=== PATIENT | male | born 1965 | race African-American/Black ===

== ENCOUNTER 2020-06-02 12:26 | Inpatient (IN) | payer OTHER, SELFPAY ==
[~2020-06-02] VITALS: Ht 172.7 cm; Wt 92.5 kg
[2020-06-02] MEDS ORDERED: SODIUM CHLORIDE 0.9% 1,000 ML IV ONE (13:00)
[2020-06-02 13:26] LABS: BASOPHILS % 0.1 % (0.0-2.0); EOSINOPHILS % 0.5 % (0.0-5.0); HEMATOCRIT. 43.4 % (42.0-52.0); HEMOGLOBIN. 13.9 g/dL (14.0-18.0); MEAN CORPUSCULAR HEMOGLOBIN 24.9 pg (28.0-32.0); MEAN CORPUSCULAR VOLUME 77.5 fL (80.0-94.0); MEAN PLATELET VOLUME 8.8 fl (7.4-10.4); MONOCYTES % 6.6 % (2.0-8.0); NEUTROPHILS % 74.8 % (40.0-76.0); PLATELET 266 x1000/uL (130-400); RED BLOOD CELL COUNT 5.59 mill/uL (4.7-6.1)
[2020-06-02 13:32] LABS: CHLORIDE 101 mEq/L (98-107)
[2020-06-02 13:35] LABS: INR 1.2; PROTHROMBIN TIME 12.1 sec (9.6-11.0)
[2020-06-02 13:36] LABS: ETHANOL BLOOD < 10 mg/dL
[2020-06-02 13:40] LABS: CREATINE KINASE 129 IU/L (39-308)
[2020-06-02] MEDS ORDERED: AZITHROMYCIN 500 MG in DEXT 5% WATER 250 ML IV ONE (13:45)
[2020-06-02] MEDS ORDERED: KCL 10MEQ/50ML PREMIX 50 ML IV SCH (13:45)
[2020-06-02] MEDS ORDERED: POTASSIUM CHLORIDE 20MEQ TABLET SR PO SCH (13:45)
[2020-06-02] MEDS ORDERED: CEFTRIAXONE 1 G PREMIX 50 ML IV ONE (13:45)
[2020-06-02] MEDS ORDERED: DOCUSATE SODIUM 100MG CAPSULE PO PRN (16:15)
[2020-06-02] MEDS ORDERED: LORAZEPAM 2MG/ML CPJ IV PRN (16:15)
[2020-06-02] MEDS ORDERED: KETOROLAC 15MG/ML VIAL IV PRN (16:15)
[2020-06-02] MEDS ORDERED: ZOLPIDEM TARTRATE 5MG TABLET PO PRN (16:15)
[2020-06-02] MEDS ORDERED: GUAIFENESIN 200MG/10ML SUGAR FREE UDC PO PRN (16:15)
[2020-06-02] MEDS ORDERED: ONDANSETRON HCL 4MG/2ML INJ IV PRN (16:15)
[2020-06-02] MEDS ORDERED: DEXTROSE 50% WATER 50ML SYRINGE IV PRN (16:15)
[2020-06-02] MEDS ORDERED: ACETAMINOPHEN 325MG TABLET PO PRN ×2 (16:15)
[2020-06-02] MEDS ORDERED: ALBUTEROL 6.7GM HFA INHALER ORI PRN (16:15)
[2020-06-02] MEDS ORDERED: NA PHOS,M-B/NA PHOS,DI-BA ENEMA 118ML PR PRN (16:15)
[2020-06-02] MEDS ORDERED: NITROGLYCERIN 0.4MG TABLET SL SL PRN (16:15)
[2020-06-02] MEDS ORDERED: MAGNESIUM/ALUMINUM HYDROXIDE/SIMETHICONE 30ML UDC PO PRN (16:15)
[2020-06-02 16:21] LABS: CLARITY URINE CLEAR (CLEAR); COLOR URINE YELLOW (YELLOW); KETONES URINE NEGATIVE (NEGATIVE); LEUKOCYTE ESTERASE URINE NEGATIVE (NEGATIVE); NITRITE URINE NEGATIVE (NEGATIVE); OCCULT BLOOD URINE NEGATIVE (NEGATIVE); PROTEIN URINE NEGATIVE (NEGATIVE); SPECIFIC GRAVITY URINE 1.007 (1.005-1.030); UROBILINOGEN URINE 0.2 E.U./dL (0.2-1.0)
[2020-06-02 16:37] LABS: *AMPHETAMINES SCREEN URINE NEGATIVE (NEGATIVE); *BARBITURATES SCREEN URINE NEGATIVE (NEGATIVE); *BENZODIAZEPINES SCREEN URINE NEGATIVE (NEGATIVE); *COCAINE SCREEN URINE NEGATIVE (NEGATIVE); METHADONE URINE SCREEN NEGATIVE (NEGATIVE); OPIATES URINE SCREEN NEGATIVE (NEGATIVE)
[2020-06-02 16:38] LABS: CANNABINOID URINE SCREEN NEGATIVE (NEGATIVE); PHENCYCLIDINE URINE SCREEN NEGATIVE (NEGATIVE)
[2020-06-02] MEDS: ENOXAPARIN 40MG/0.4ML SYR SUBCUT SCH (17:15)
[2020-06-02] MEDS: BLOOD SUGAR DIAGNOSTIC STRIP TEST SCH ×2 (17:22→21:00)
[2020-06-02] MEDS: INSULIN LISPRO 100 UNITS/ML SUBCUT SCH ×2 (18:20→21:00)
[2020-06-02] MEDS: GUAIFENESIN/DM 600MG/30MG ER TAB 12HR PO SCH (18:34)
[2020-06-02] MEDS: DILTIAZEM HCL 60MG TABLET PO SCH (18:34)
[2020-06-02 18:52] LABS: FOLIC ACID (FOLATE) SERUM 17.8 ng/mL (>5.38)
[2020-06-02] MEDS: ASCORBIC ACID 500 MG TABLET PO SCH (21:00)
[2020-06-02] MEDS: LEVETIRACETAM 500MG TABLET PO SCH (21:00)
[2020-06-02] MEDS: FAMOTIDINE 20MG TABLET PO SCH (21:00)
[2020-06-02] MEDS ORDERED: MAGNESIUM 1 G PREMIX 100 ML IV SCH (23:00)
[2020-06-03] MEDS: PHENYTOIN SODIUM 100MG/2ML VIAL IV SCH ×3 (02:03→17:29)
[2020-06-03 02:20] LABS: CREATINE KINASE 147 IU/L (39-308)
[2020-06-03 02:21] LABS: CREATINE KINASE MB FRACTION 2.9 ng/mL (0.5-3.6)
[2020-06-03 05:02] LABS: BASOPHILS % 0.5 % (0.0-2.0); EOSINOPHILS % 0.6 % (0.0-5.0); HEMATOCRIT. 40.2 % (42.0-52.0); LYMPHOCYTES % 22.8 % (20.0-50.0); MEAN CORPUSCULAR HEMOGLOBIN 25.2 pg (28.0-32.0); MEAN CORPUSCULAR VOLUME 78.2 fL (80.0-94.0); MEAN PLATELET VOLUME 9.2 fl (7.4-10.4); MONOCYTES % 7.8 % (2.0-8.0); NEUTROPHILS % 68.3 % (40.0-76.0); PLATELET 246 x1000/uL (130-400); RED BLOOD CELL COUNT 5.14 mill/uL (4.7-6.1)
[2020-06-03 05:09] LABS: CHLORIDE 105 mEq/L (98-107)
[2020-06-03 05:16] LABS: PHOSPHORUS 3.2 mg/dL (2.5-4.9)
[2020-06-03 05:19] LABS: CREATINE KINASE 133 IU/L (39-308)
[2020-06-03 05:22] LABS: CREATINE KINASE MB FRACTION 3.1 ng/mL (0.5-3.6)
[2020-06-03] MEDS: DILTIAZEM HCL 60MG TABLET PO SCH ×4 (06:00→18:17)
[2020-06-03] MEDS: GUAIFENESIN/DM 600MG/30MG ER TAB 12HR PO SCH ×2 (06:00→18:17)
[2020-06-03] MEDS: BLOOD SUGAR DIAGNOSTIC STRIP TEST SCH ×4 (06:30→21:00)
[2020-06-03] MEDS: INSULIN LISPRO 100 UNITS/ML SUBCUT SCH ×4 (07:00→21:00)
[2020-06-03] MEDS ORDERED: ASPIRIN 325MG EC TABLET PO SCH (09:00)
[2020-06-03] MEDS: ZINC SULFATE 220 MG ( 50 ) CAPSULE PO SCH (09:28)
[2020-06-03] MEDS: LEVETIRACETAM 500MG TABLET PO SCH ×2 (09:28→22:48)
[2020-06-03] MEDS: FAMOTIDINE 20MG TABLET PO SCH ×2 (09:28→22:48)
[2020-06-03] MEDS: ASCORBIC ACID 500 MG TABLET PO SCH ×2 (09:28→22:48)
[2020-06-03 11:05] VITALS: BP 167/91
[2020-06-03 12:00] VITALS: BP 167/91
[2020-06-03] MEDS ORDERED: POTASSIUM CHLORIDE 20MEQ/PACKET PO SCH (12:00)
[2020-06-03] MEDS ORDERED: MAGNESIUM 2 G PREMIX 50 ML IV SCH (13:00)
[2020-06-03 13:08] VITALS: BP 167/91
[2020-06-03] MEDS ORDERED: CEFTRIAXONE 1 G PREMIX 50 ML IV SCH (14:00)
[2020-06-03] MEDS ORDERED: AZITHROMYCIN 500 MG in DEXT 5% WATER 250 ML IV SCH (14:30)
[2020-06-03] MEDS ORDERED: METF-414 PO (15:30)
[2020-06-03] MEDS ORDERED: GLIP5TAB12 MT (15:31)
[2020-06-03] MEDS ORDERED: ATOR10TA69 MT (15:31)
[2020-06-03] MEDS ORDERED: LISI2.5T47 PO (15:31)
[2020-06-03 16:00] VITALS: BP 159/74
[2020-06-03] MEDS: CEFTRIAXONE 1,000 MG in DEXTROSE 5% WATER 50 ML IV SCH (16:39)
[2020-06-03] MEDS ORDERED: LISI40TA4 MT (16:50)
[2020-06-03] MEDS ORDERED: HYDR25TA MT (16:50)
[2020-06-03] MEDS ORDERED: GLIP10TA10 MT (16:50)
[2020-06-03] MEDS ORDERED: ATOR-2 MT (16:50)
[2020-06-03] MEDS ORDERED: METF-873 MT (16:50)
[2020-06-03] MEDS ORDERED: *PATIENT'S OWN MEDICATION STORAGE XX SCH (17:15)
[2020-06-03] MEDS: ENOXAPARIN 40MG/0.4ML SYR SUBCUT SCH (18:17)
[2020-06-03] MEDS: AZITHROMYCIN 500 MG in DEXT 5% WATER 250 ML IV SCH (18:17)
[2020-06-03 20:00] VITALS: BP 182/84
[2020-06-03] MEDS: ALBUTEROL 6.7GM HFA INHALER ORI SCH (21:00)
[2020-06-04] VITALS (7 sets, daily range): BP systolic 133–185; BP diastolic 74–101
[2020-06-04] MEDS: PHENYTOIN SODIUM 100MG/2ML VIAL IV SCH ×3 (02:00→18:00)
[2020-06-04] MEDS: ALBUTEROL 6.7GM HFA INHALER ORI SCH (03:00)
[2020-06-04] MEDS: DILTIAZEM HCL 60MG TABLET PO SCH ×4 (06:01→19:20)
[2020-06-04] MEDS: GUAIFENESIN/DM 600MG/30MG ER TAB 12HR PO SCH ×2 (06:08→19:20)
[2020-06-04] MEDS: BLOOD SUGAR DIAGNOSTIC STRIP TEST SCH ×4 (06:46→21:00)
[2020-06-04] MEDS: INSULIN LISPRO 100 UNITS/ML SUBCUT SCH ×4 (07:50→21:00)
[2020-06-04] MEDS: CHOLECALCIFEROL (D3) 1000 UNIT TABLET PO SCH (13:06)
[2020-06-04] MEDS: FAMOTIDINE 20MG TABLET PO SCH ×2 (13:06→22:31)
[2020-06-04] MEDS: ASCORBIC ACID 500 MG TABLET PO SCH ×2 (13:06→22:31)
[2020-06-04] MEDS: LEVETIRACETAM 500MG TABLET PO SCH ×3 (13:06→22:31)
[2020-06-04] MEDS: ZINC SULFATE 220 MG ( 50 ) CAPSULE PO SCH (13:06)
[2020-06-04] MEDS: CLOPIDOGREL 75MG TABLET PO SCH (13:09)
[2020-06-04] MEDS: ENOXAPARIN 40MG/0.4ML SYR SUBCUT SCH (16:27)
[2020-06-04] MEDS: AZITHROMYCIN 500 MG in DEXT 5% WATER 250 ML IV SCH (16:27)
[2020-06-04] MEDS: CEFTRIAXONE 1,000 MG in DEXTROSE 5% WATER 50 ML IV SCH (16:27)
[2020-06-04] MEDS: CLONIDINE 0.1MG TABLET PO PRN (22:31)
[2020-06-05] VITALS: BP 150/92
[2020-06-05] MEDS: DILTIAZEM HCL 60MG TABLET PO SCH ×4 (00:51→17:32)
[2020-06-05] MEDS: PHENYTOIN SODIUM 100MG/2ML VIAL IV SCH ×3 (02:00→17:21)
[2020-06-05 04:00] VITALS: BP 123/81
[2020-06-05] MEDS: GUAIFENESIN/DM 600MG/30MG ER TAB 12HR PO SCH ×2 (05:56→17:32)
[2020-06-05] MEDS: INSULIN LISPRO 100 UNITS/ML SUBCUT SCH ×4 (07:41→22:10)
[2020-06-05] MEDS: BLOOD SUGAR DIAGNOSTIC STRIP TEST SCH ×4 (07:41→21:00)
[2020-06-05 08:00] VITALS: BP 156/90
[2020-06-05] MEDS: ASCORBIC ACID 500 MG TABLET PO SCH ×2 (08:58→22:05)
[2020-06-05] MEDS: CLOPIDOGREL 75MG TABLET PO SCH (08:58)
[2020-06-05] MEDS: FAMOTIDINE 20MG TABLET PO SCH ×2 (08:58→22:04)
[2020-06-05] MEDS: CHOLECALCIFEROL (D3) 1000 UNIT TABLET PO SCH (08:58)
[2020-06-05] MEDS: LEVETIRACETAM 500MG TABLET PO SCH ×2 (08:59→21:00)
[2020-06-05] MEDS: ZINC SULFATE 220 MG ( 50 ) CAPSULE PO SCH (08:59)
[2020-06-05] MEDS: ALBUTEROL 6.7GM HFA INHALER ORI SCH ×3 (09:00→21:00)
[2020-06-05 12:00] VITALS: BP 143/79
[2020-06-05] MEDS: CEFTRIAXONE 1,000 MG in DEXTROSE 5% WATER 50 ML IV SCH (13:00)
[2020-06-05] MEDS: AZITHROMYCIN 500 MG in DEXT 5% WATER 250 ML IV SCH (13:08)
[2020-06-05 16:00] VITALS: BP 147/89
[2020-06-05] MEDS: ENOXAPARIN 40MG/0.4ML SYR SUBCUT SCH (17:32)
[2020-06-05 20:00] VITALS: BP 179/97
[2020-06-05] MEDS: CLONIDINE 0.1MG TABLET PO PRN (22:05)
[2020-06-06] VITALS: BP 152/81
[2020-06-06] MEDS: PHENYTOIN SODIUM 100MG/2ML VIAL IV SCH ×3 (01:51→18:00)
[2020-06-06] MEDS: DILTIAZEM HCL 60MG TABLET PO SCH ×4 (01:54→18:20)
[2020-06-06] MEDS: ALBUTEROL 6.7GM HFA INHALER ORI SCH ×2 (03:00→21:00)
[2020-06-06 04:30] VITALS: BP 150/70
[2020-06-06] MEDS: GUAIFENESIN/DM 600MG/30MG ER TAB 12HR PO SCH ×2 (06:41→18:20)
[2020-06-06] MEDS: BLOOD SUGAR DIAGNOSTIC STRIP TEST SCH ×4 (06:42→20:44)
[2020-06-06] MEDS: INSULIN LISPRO 100 UNITS/ML SUBCUT SCH ×4 (07:50→20:55)
[2020-06-06 08:00] VITALS: BP 141/76
[2020-06-06] MEDS: CHOLECALCIFEROL (D3) 1000 UNIT TABLET PO SCH (08:12)
[2020-06-06] MEDS: ZINC SULFATE 220 MG ( 50 ) CAPSULE PO SCH (08:12)
[2020-06-06] MEDS: CLOPIDOGREL 75MG TABLET PO SCH (08:12)
[2020-06-06] MEDS: LEVETIRACETAM 500MG TABLET PO SCH ×2 (08:12→20:44)
[2020-06-06] MEDS: ASCORBIC ACID 500 MG TABLET PO SCH ×2 (08:12→20:44)
[2020-06-06] MEDS: FAMOTIDINE 20MG TABLET PO SCH ×2 (08:12→20:44)
[2020-06-06] MEDS ORDERED: LIDOCAINE HCL 2% JELLY 5ML ONE (09:20)
[2020-06-06] MEDS ORDERED: FENTANYL CITRATE/PF 50MCG/ML 5ML VIAL ONE (09:20)
[2020-06-06] MEDS ORDERED: TETRACAINE/BENZOCAINE/BUTAMBEN 20 GM SPRAY MM ONE (09:21)
[2020-06-06] MEDS ORDERED: MIDAZOLAM HCL 5 MG/5 ML VIAL ONE ×2 (09:21→09:23)
[2020-06-06] MEDS ORDERED: FENTANYL CITRATE/PF 50MCG/ML 2ML VIAL ONE (09:23)
[2020-06-06 12:00] VITALS: BP 159/74
[2020-06-06] MEDS: CEFTRIAXONE 1,000 MG in DEXTROSE 5% WATER 50 ML IV SCH (13:00)
[2020-06-06] MEDS: AZITHROMYCIN 500 MG in DEXT 5% WATER 250 ML IV SCH (13:27)
[2020-06-06 16:00] VITALS: BP 148/76
[2020-06-06] MEDS: ENOXAPARIN 40MG/0.4ML SYR SUBCUT SCH (18:20)
[2020-06-06 20:00] VITALS: BP 152/73
[2020-06-07] VITALS: BP 188/95
[2020-06-07] MEDS: DILTIAZEM HCL 60MG TABLET PO SCH ×2 (01:44→06:36)
[2020-06-07] MEDS: CLONIDINE 0.1MG TABLET PO PRN (01:44)
[2020-06-07] MEDS: PHENYTOIN SODIUM 100MG/2ML VIAL IV SCH ×2 (01:47→10:00)
[2020-06-07] MEDS: ALBUTEROL 6.7GM HFA INHALER ORI SCH ×2 (03:00→08:53)
[2020-06-07 04:00] VITALS: BP 147/79
[2020-06-07] MEDS: BLOOD SUGAR DIAGNOSTIC STRIP TEST SCH (06:35)
[2020-06-07] MEDS: GUAIFENESIN/DM 600MG/30MG ER TAB 12HR PO SCH (06:36)
[2020-06-07 06:56] VITALS: BP 148/78
[2020-06-07] MEDS: INSULIN LISPRO 100 UNITS/ML SUBCUT SCH (06:59)
[2020-06-07 08:00] VITALS: BP 142/72
[2020-06-07] MEDS: LEVETIRACETAM 500MG TABLET PO SCH (08:50)
[2020-06-07] MEDS: CLOPIDOGREL 75MG TABLET PO SCH (08:53)
[2020-06-07] MEDS: FAMOTIDINE 20MG TABLET PO SCH (08:53)
[2020-06-07] MEDS: CHOLECALCIFEROL (D3) 1000 UNIT TABLET PO SCH (08:53)
[2020-06-07] MEDS: ASCORBIC ACID 500 MG TABLET PO SCH (08:53)
[2020-06-07] MEDS: ZINC SULFATE 220 MG ( 50 ) CAPSULE PO SCH (08:53)
[2020-06-07 09:42] VITALS: BP 144/67
== END 2020-06-07 13:13 | disposition home or self-care (01) | DRG 64 ==
LOC: ER 12:26 → MICUSO 15:11 → 6WST 06-03 09:56
PROVIDERS: ADMIT Internal Medicine; ATTEND Internal Medicine
DX: I63.9 Cerebral infarction, unspecified (principal); G92 Toxic encephalopathy; J18.9 Pneumonia, unspecified organism; E87.6 Hypokalemia; I10 Essential (primary) hypertension; E83.42 Hypomagnesemia; G40.909 Epilepsy, unspecified, not intractable, without status epilepticus; Z20.822 Contact with and (suspected) exposure to COVID-19; E78.5 Hyperlipidemia, unspecified; E11.9 Type 2 diabetes mellitus without complications; Z53.9 Procedure and treatment not carried out, unspecified reason
CPT/HCPCS: 36415; 70544; 70547; 70551; 71045; 80053; 80061; 80185; 80305; 80320; 81003; 82550; 82553; 82607; 82728; 82746; 82962; 83036; 83540; 83550; 83605; 83735; 84100; 84145; 84484; 85025; 85384; 86140; 92523; 93005; 93306; 93880; 93970; 97162; 97166; 99291; J0456; J0696; J1165; J1650; J1815; J2250; J3010; J3475; J3480; J7030; J7060; U0003; G0480

== ENCOUNTER 2020-09-16 21:18 | Emergency (ER) | payer OTHER ==
[~2020-09-16] VITALS: Ht 177.8 cm; Wt 68.0 kg
[~2020-09-16 21:18] MED LIST: ATOR-2 MT; GLIP10TA10 MT; HYDR25TA MT; LISI40TA13 MT; METF-873 MT
[2020-09-16 22:39] LABS: BASOPHILS % 0.4 % (0.0-2.0); HEMATOCRIT. 42.6 % (42.0-52.0); LYMPHOCYTES % 29.5 % (20.0-50.0); MEAN CORPUSCULAR HEMOGLOBIN 25.9 pg (28.0-32.0); MEAN CORPUSCULAR VOLUME 78.7 fL (80.0-94.0); MEAN PLATELET VOLUME 8.6 fl (7.4-10.4); MONOCYTES % 7.6 % (2.0-8.0); NEUTROPHILS % 61.5 % (40.0-76.0); PLATELET 283 x1000/uL (130-400); RED BLOOD CELL COUNT 5.42 mill/uL (4.7-6.1)
[2020-09-16 22:49] LABS: CHLORIDE 102 mEq/L (98-107)
[2020-09-16 22:54] LABS: ETHANOL BLOOD < 10 mg/dL
[2020-09-16 23:30] LABS: CLARITY URINE CLEAR (CLEAR); COLOR URINE YELLOW (YELLOW); KETONES URINE NEGATIVE (NEGATIVE); LEUKOCYTE ESTERASE URINE NEGATIVE (NEGATIVE); NITRITE URINE NEGATIVE (NEGATIVE); OCCULT BLOOD URINE NEGATIVE (NEGATIVE); PH URINE 5.5 (4.5-8.0); PROTEIN URINE NEGATIVE (NEGATIVE); SPECIFIC GRAVITY URINE 1.013 (1.005-1.030); UROBILINOGEN URINE 0.2 E.U./dL (0.2-1.0)
[2020-09-16 23:45] LABS: *AMPHETAMINES SCREEN URINE NEGATIVE (NEGATIVE); *BARBITURATES SCREEN URINE NEGATIVE (NEGATIVE); *BENZODIAZEPINES SCREEN URINE NEGATIVE (NEGATIVE)
[2020-09-16 23:46] LABS: *COCAINE SCREEN URINE NEGATIVE (NEGATIVE); CANNABINOID URINE SCREEN NEGATIVE (NEGATIVE); METHADONE URINE SCREEN NEGATIVE (NEGATIVE); OPIATES URINE SCREEN NEGATIVE (NEGATIVE); PHENCYCLIDINE URINE SCREEN NEGATIVE (NEGATIVE)
[2020-09-17] MEDS ORDERED: CEFTRIAXONE 1 G PREMIX 50 ML IV ONE
[2020-09-17] MEDS ORDERED: AZITHROMYCIN 500 MG TABLET PO ONE
[2020-09-17 02:10] VITALS: BP 146/84
== END 2020-09-17 04:03 | disposition short-term general hospital (02) ==
LOC: ER 21:18 → CANBEDREQ 09-17 01:06 → ER 09-17 04:03
DX: A41.9 Sepsis, unspecified organism (principal); J18.9 Pneumonia, unspecified organism; R41.82 Altered mental status, unspecified; E11.9 Type 2 diabetes mellitus without complications; I10 Essential (primary) hypertension; Z20.822 Contact with and (suspected) exposure to COVID-19; Z86.73 Personal history of transient ischemic attack (TIA), and cerebral infarction without residual deficits; Z79.84 Long term (current) use of oral hypoglycemic drugs
CPT/HCPCS: 36415; 70450; 71045; 80053; 80305; 80320; 81003; 82140; 82962; 83605; 84484; 85025; 86850; 86900; 86901; 87426; 93005; 96365; 96366; 99285; J0696; G0480